=== PATIENT | female | born 1955 | race Caucasian/White ===

== ENCOUNTER 2017-04-30 18:26 | Inpatient (IN) | payer SELFPAY ==
[2017-04-30] MEDS ORDERED: Ibuprofen 600 MG TAB ONE (19:29)
[2017-04-30 19:59] LABS: #Basophils 0.1 thou/uL (0.0-0.2); #Lymphocytes 1.9 thou/uL (1.20-3.40); #Monocytes 0.7 thou/uL (0.11-0.59); %Basophils 0.5 % (0.0-1.0); %Eosinophils 0.1 % (0.0-10.0); %Lymphocytes 12.7 % (21.0-51.0); %Monocytes 4.5 % (0.0-10.0); Hematocrit 39.7 % (36.0-47.0); Mean Platelet Volume 6.5 fL (7.4-10.4); White Blood Cell (WBC) Count 14.6 thou/uL (4.8-10.8)
[2017-04-30 20:05] LABS: Prothrombin Time 12.1 SEC (12.0-14.7)
[2017-04-30 20:14] LABS: ALT (SGPT) 19 U/L (8-55); AST (SGOT) 21 U/L (5-34); Alkaline Phosphatase 53 U/L (40-150); Anion Gap 15 mmol/L (10-20); BUN (Urea Nitrogen) 17 mg/dL (9.8-20.1); Bilirubin, Total 0.3 mg/dL (0.2-1.2); Calc. Creatinine Clearance 0 mL/min (70-130); Calcium 10.3 mg/dL (7.8-10.44); Carbon Dioxide 23 mmol/L (23-31); Chloride 106 mmol/L (98-107); Estimated GFR-MDRD 85; Globulin 3.1 g/dL (2.4-3.5); Protein, Total 7.4 g/dL (6.0-8.3)
--- NOTE | 2017-04-30 21:09 | RAD ---
TWO VIEWS OF THE LEFT FORELEG: Indication: Fall with left thigh deformity. FINDINGS: There is a spiral fracture along the distal shaft of the left tibia with external rotation of the dis jody tibial shaft. There is an additional minimally displaced spiral fracture involving the distal fib ular shaft above the level of the ankle joint. A obliquely oriented comminuted fracture is seen invol ving the proximal fibular neck. This is minimally displaced. IMPRESSION: 1. Spiral fracture at the distal tibial shaft with external rotation of the distal fragment. 2. Segmental fracture of the fibula. POS: SLAVA
[2017-04-30] MEDS ORDERED: Dextrose 50% Abboject 50 ML SYRINGE SLOW IVP PRN (21:48)
[2017-04-30] MEDS ORDERED: Promethazine HCl 25 MG/ML VIAL IM PRN (21:48)
[2017-04-30] MEDS ORDERED: Ondansetron ODT 4 MG TAB PO PRN (21:48)
[2017-04-30] MEDS ORDERED: Acetaminophen 500 MG TAB PO PRN (21:48)
[2017-04-30] MEDS ORDERED: traMADol HCl 50 MG TAB PO PRN ×2 (21:48)
[2017-04-30] MEDS ORDERED: Ondansetron HCl/PF 4 MG/2 ML Vial IVP PRN (21:48)
[2017-04-30] MEDS ORDERED: Morphine 5 mg/5 ml in 0.9% NaCl/PF SYRINGE IVP PRN (21:48)
[2017-04-30] MEDS ORDERED: hydrALAZINE 20 MG/ML VIAL SLOW IVP PRN (21:48)
[2017-04-30] MEDS ORDERED: Dextrose 5% in Water 1,000 ML IV PRN (21:48)
[2017-04-30] MEDS ORDERED: Famotidine/PF 20 mg/2ml Vial SLOW IVP SCH (22:15)
[2017-04-30] MEDS: Sodium Chloride 0.9% 1,000 ML IV SCH (23:52)
[2017-04-30] MEDS: Ketorolac Tromethamine 30 MG/ML VIAL IVP SCH (23:56)
[2017-05-01 03:58] VITALS: BMI 22.6
[2017-05-01 04:34] LABS: #Eosinphils 0.1 thou/uL (0.0-0.7); #Lymphocytes 2.3 thou/uL (1.20-3.40); #Monocytes 0.7 thou/uL (0.11-0.59); #Neutrophils 4.6 thou/uL (1.40-6.50); %Basophils 0.6 % (0.0-1.0); %Eosinophils 0.8 % (0.0-10.0); %Lymphocytes 29.5 % (21.0-51.0); %Monocytes 8.6 % (0.0-10.0); Hematocrit 38.5 % (36.0-47.0); Red Blood Cell (RBC) Count 4.13 mill/uL (4.20-5.40); White Blood Cell (WBC) Count 7.7 thou/uL (4.8-10.8)
[2017-05-01 04:48] LABS: Anion Gap 12 mmol/L (10-20); BUN (Urea Nitrogen) 14 mg/dL (9.8-20.1); Calc. Creatinine Clearance 85 mL/min (70-130); Calcium 9.4 mg/dL (7.8-10.44); Carbon Dioxide 21 mmol/L (23-31); Chloride 108 mmol/L (98-107); Estimated GFR-MDRD Greater than 90; Magnesium 2.5 mg/dL (1.6-2.6); Phosphorus 3.4 mg/dL (2.3-4.7)
[2017-05-01] MEDS: Ketorolac Tromethamine 30 MG/ML VIAL IVP SCH ×4 (05:40→23:37)
--- NOTE | 2017-05-01 05:54 | HP ---
DATE OF ADMISSION: 04/30/2017 Chapincito Steele PA-C, dictating for Jacob Vital M.D. CONSULTING PHYSICIAN: Dr. Shields for Orthopedics. CHIEF COMPLAINT: Evaluation status post fall. HISTORY OF PRESENT ILLNESS: This is a 62-year-old female, complaining of pain in the left lower leg after slipping and falling down stairs. The patient denies any head or neck pain at the scene. The patient reported left lower leg pain. 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 She "heard the bone snap." She denies any LOC, chest pain, shortness of breath PAST MEDICAL HISTORY: She denies. PERTINENT SURGICAL HISTORY: and ganglion cyst removal on the right upper extremity. HOME MEDICATIONS: She denies any. PSYCHIATRIC HISTORY: She denies any psychiatric history. SOCIAL HISTORY: She does live at home with her . She denies any alcohol use. She denies any illicit drug use. She does use tobacco about half pack per day for the past 45 years. REVIEW OF SYSTEMS: All 10 systems reviewed, otherwise stated in HPI were negative. PHYSICAL EXAMINATION: VITAL SIGNS: Blood pressure 131/77, heart rate 96, temperature 98.7, respiratory rate 18. GENERAL: She is in no acute distress. HEENT: She is atraumatic, normocephalic. Pupils are 3 mm bilaterally equal, round, and reactive to light. NECK: No JVD, no masses. Trachea is midline. No cervical spine tenderness. PULMONARY: She is clear bilaterally to auscultation. CARDIOVASCULAR: S1, S2, regular rate and rhythm. ABDOMEN: Soft, nontender, nondistended. BACK: Unremarkable. EXTREMITIES: Upper extremities are unremarkable, positive pulses, equal strength and sensation. Left lower extremity swelling is in a notable splint. She has good pulses, no edema bilaterally. Range of motion is intact. RADIOLOGIC FINDINGS: Proximal fibular head fracture, spiral fracture of distal tibia and fibula fracture. LABORATORY FINDINGS: CBC showed WBCs of 14.6, hemoglobin 13.9, hematocrit 39.7 , platelet count 261. Coags: PT 12.1, INR 0.9. Chemistry: Sodium of 140, potassium 4.1, chloride 106, bicarbonate 23, BUN 17, creatinine 0.70, glucose 114. ASSESSMENT AND PLAN: A 62-year-old female status post fall with left lower leg fracture. 1. Left tibia and fibula fracture. 2. Acute traumatic pain. 3. Ground level fall. Plan will be orthopedic consultation. The patient will go to the operating room tomorrow. She will be n.p.o. after midnight. We will continue IV fluids. Optimize her pain control with p.o. and IV analgesics. Initiate gastritis and DVT prophylaxis when appropriate. The patient has been discussed with and the plan has been agreed upon by Dr. Vital at the time of dictation. RONAL
[2017-05-01] MEDS ORDERED: CEFAZOLIN/Water 2 GM/20 ML SYRINGE SLOW IVP SCH (07:30)
--- NOTE | 2017-05-01 08:04 | CON ---
DATE OF CONSULTATION: 05/01/2017 REASON FOR CONSULTATION: Left tibia fracture. HISTORY OF PRESENT ILLNESS: She was walking outside yesterday, slipped, twisted her leg, and suffere d a spiral fracture of her tibia. PAST MEDICAL HISTORY: Negative. SOCIAL HISTORY: She does smoke about a pack a day. She does not drink significantly. She has a goo d support system at home. REVIEW OF SYSTEMS: Negative for chest pain, nausea, vomiting. PHYSICAL EXAMINATION: GENERAL: Shows a pleasant woman in no distress. HEENT: She is normocephalic, atraumatic. LUNGS: Clear. EXTREMITIES: Left leg shows external rotation deformity, intact posterior tibial pulse, and intact s ensation. LABORATORY AND X-RAY FINDINGS: Radiographs show spiral fracture of the tibia with a segmental fibula fracture. PLAN: Intramedullary fixation of the tibia, possible ORIF of the fibula depending on the stability o f the ankle. She understands and would like to proceed with surgery. She understands the risk of in fection, stiffness, nerve or blood vessel damage, blood clots, transfusion, , and gives consent.
[2017-05-01] MEDS: Famotidine/PF 20 mg/2ml Vial SLOW IVP SCH ×2 (10:53→21:56)
[2017-05-01] MEDS: Sodium Chloride 0.9% 1,000 ML IV SCH ×2 (10:53→20:08)
[2017-05-01] MEDS ORDERED: Ketorolac Tromethamine 30 MG/ML VIAL ONE (12:54)
[2017-05-01] MEDS ORDERED: CEFAZOLIN/Water 2 GM/20 ML SYRINGE ONE (12:55)
[2017-05-01] MEDS ORDERED: HYDROcodone/Acetaminophen 5/325 mg Tablet PO PRN ×2 (14:18)
[2017-05-01] MEDS ORDERED: Fentanyl 100 MCG/2 ML VIAL ONE (14:26)
[2017-05-01] MEDS ORDERED: HYDROmorphone 0.5 MG/0.5 ML SYRINGE ONE ×2 (14:51)
[2017-05-01] MEDS ORDERED: Dexamethasone 20 MG/5 ML VIAL ONE (17:12)
[2017-05-01] MEDS ORDERED: Ondansetron HCl/PF 4 MG/2 ML Vial ONE (17:12)
[2017-05-01] MEDS ORDERED: Metoclopramide HCl 10 MG/2 ML VIAL ONE (17:12)
[2017-05-01] MEDS ORDERED: ePHEDrine/0.9% NaCl/PF SYRINGE 50 mg/10 ml ONE (17:12)
[2017-05-01] MEDS ORDERED: Propofol 200 MG/20 ML VIAL ONE (17:12)
[2017-05-01] MEDS ORDERED: Lidocaine 1% PF 5 ML VIAL ONE (17:12)
--- NOTE | 2017-05-01 18:30 | PRG ---
DATE OF SERVICE: 05/01/2017 ATTENDING PHYSICIAN: Dr. Ryan Trivedi. SUBJECTIVE: The patient was admitted one day ago after a ground level fall in which she twisted her leg and suffered a spiral fracture of her tibia. She was admitted to the hospital by Trauma Services with a consult to Orthopedic Service. She was seen this morning on the surgical floor, awaiting to go to the OR for fixation of her fracture. Pain is well controlled. She is currently n.p.o. No oth er complaints at this time. OBJECTIVE: VITAL SIGNS: Temperature 98.1, pulse 67, respirations 16, O2 sat 95%, blood pressure 141/69. GENERAL: Well-nourished, well-developed female, in no acute distress. HEENT: Normocephalic, atraumatic. PULMONARY: Bilateral breath sounds clear. No respiratory distress. CARDIOVASCULAR: S1, S2, regular rate and rhythm. ABDOMEN: Soft, nontender, nondistended. EXTREMITIES: Splint in place, left lower leg and foot. Cap refill brisk. Neurovascularly intact. NEUROLOGIC: Awake, alert, oriented x3. GCS is 15. ASSESSMENT: 1. Ground-level fall. 2. Fracture of left tibia. PLAN: 1. The patient to OR this afternoon with Dr. Shields for repair of fracture. 2. N.p.o. until after OR. 3. IV analgesia until after OR. 4. Anticipate starting physical and occupational therapy in a.m. The patient was seen and examined with Dr. Trivedi on morning rounds.
--- NOTE | 2017-05-01 18:45 | RAD ---
FIVE INTRAOPERATIVE RADIOGRAPHS LEFT TIBIA AND FIBULA: History: Fracture. FINDINGS: There is an intramedullary nail and screws across the fracture in the mid left tibia. Post reduction radiograph demonstrates fairly good anatomic alignment. IMPRESSION: Open reduction internal fixation of left tibial fracture. POS: SLAVA
[2017-05-01] MEDS: CEFAZOLIN/Water 2 GM/20 ML SYRINGE SLOW IVP SCH (21:57)
--- NOTE | 2017-05-01 22:29 | OP ---
DATE OF PROCEDURE: 05/01/2017 PREOPERATIVE DIAGNOSES: Left knee distal third diaphyseal tibial shaft fracture with segmental nondi splaced fibular shaft fracture. POSTOPERATIVE DIAGNOSES: Left knee distal third diaphyseal tibial shaft fracture with segmental nond isplaced fibular shaft fracture. OPERATIVE PROCEDURE: Closed reduction with intramedullary tibial nail fixation of left tibial shaft fracture. SURGEON: Beltran Shields M.D. CLIENT PARTNER: Bo Porter PA-C. ANESTHESIA: General via LMA. TOURNIQUET: Not used. ESTIMATED BLOOD LOSS: Less than 50. COMPONENTS USED: Synthes 8 x 300 mm titanium cannulated tibial nail with two 4.0 interlocking screws . FINDINGS: Tibial shaft fracture, distal third metadiaphyseal junction. DRAINS: None. SPECIMENS: None. COMPLICATIONS: None. COUNTS: Correct. INDICATIONS FOR SURGERY: Tamara is a 62-year-old white female who had a fall from standing high yes terday resulting in a left tibial shaft fracture with segmental nondisplaced fibular shaft fracture. Our service was consulted for definitive orthopedic management of this problem. PROCEDURE IN DETAIL: After informed consent was obtained in the preoperative holding area, the patie nt received preoperative antibiotics, was taken to the operative suite where she was positioned appro priately. The left lower extremity was then prepped and draped in the usual sterile fashion. Prior to incision, timeout was called and all members of the surgical team agreed on site, surgeon, and pat ient. After this, an incision was made directly over the patellar tendon. Fluoroscopy was used at t he beginning of the case to find the center-center. Once this was accomplished, the patellar tendon was then encountered and incised sharply in the middle tibial joint line. A guidewire was then placed, extraarticular and outside the fat pad behind the patellar tendon. This was over reamed wit h the entry reamer. We then placed a long guide justine. We were able to capture the distal shaft and c onfirmed its placement in 2 planes. We then used the intramedullary reamer up to a size 9. We place d an 8 mm tibial nail. Nail was fairly malleted squarely into place. Fluoroscopy was used to confir m rotation and reduction in 2 planes. Happy with near anatomic reduction, we then placed a 4.0 stati c screw proximally and a distal oblique interlocking screw to control rotation on both ends. Fluoros copy was then confirmed anatomic reduction and good screw placement. The outrigger was then removed. The incisions were copiously irrigated with normal saline. We did not place an end cap. Primary c losure was accomplished with interrupted 2-0 Vicryl in the patellar tendon. The paratenon was then r un with 2-0 Vicryl, subcutaneous layer was also closed with 2-0 Vicryl, and stainless steel raghav w ere used to reapproximate the skin at the patellar tendon proximal and distal interlocking screws. S terile dressing was applied. Posterior splint was placed. The procedure was terminated without any complications. The LMA was removed. The patient was taken to the recovery room in stable condition.
[2017-05-02] MEDS: Ketorolac Tromethamine 30 MG/ML VIAL IVP SCH ×2 (05:38→12:42)
[2017-05-02] MEDS: CEFAZOLIN/Water 2 GM/20 ML SYRINGE SLOW IVP SCH ×2 (05:39→12:42)
[2017-05-02] MEDS: Sodium Chloride 0.9% 1,000 ML IV SCH (05:48)
[2017-05-02] MEDS: Famotidine/PF 20 mg/2ml Vial SLOW IVP SCH (09:42)
--- NOTE | 2017-05-02 11:54 | PRG-2 ---
DATE OF SERVICE: 05/02/2017 ATTENDING PHYSICIAN: Ryan Trivedi D.O. SUBJECTIVE: Tamara Minor is a 62-year-old woman who is postop day #1 for closed reduction with intr amedullary tibial nail fixation of a left tibial shaft fracture after a ground level fall. The patie nt is doing well this morning. She states that her pain is well controlled. She has no complaints. OBJECTIVE: VITAL SIGNS: Temperature 98.3, pulse 63, respiratory 16, O2 sat 98% on 1.5 liters and blood pressure is 126/60. GENERAL: Well-nourished, well-developed woman in no acute distress. HEENT: Normocephalic, atraumatic. LUNGS: Clear to auscultation bilaterally. No respiratory distress. CARDIOVASCULAR: Regular rate and rhythm with no murmurs. ABDOMEN: Soft, nontender, nondistended. NEUROLOGIC: Awake, alert and oriented x3. ASSESSMENT: 1. Ground level fall. 2. Fractured left tibia. PLAN: Routine postoperative care. We will continue p.o. pain management and we will advance diet to day as tolerated. We will also get case management involved for rehab screening. We will also eugenia nue mobilization with physical and occupational therapy. The patient was seen and examined by attending trauma surgeon, Dr. Ryan Trivedi in morning rounds.
[2017-05-02 13:03] VITALS: BP 146/78; TEMP 97.8
--- NOTE | 2017-05-03 13:32 | DIS ---
DATE OF ADMISSION: 04/30/2017 DATE OF DISCHARGE: 05/03/2017 ADMISSION DIAGNOSES: 1. Status post ground level fall. 2. Left tibia and fibula fracture. CONSULTATIONS: Orthopedics, Dr. Shields. PROCEDURE: Intramedullary nailing of left tibia fracture. SUMMARY: The patient is a 62-year-old woman who reportedly slipped down a stair at home. She had pain in her left lower extremity, was brought to the emergency department, evaluated, examined, and f ound to have the above injuries. The patient will be taken to the operating room to undergo her proc edures. She tolerated this procedure well. The following day, she would be working with physical an d occupational therapy and at time of discharge, she was ambulating with a walker, was tolerating a d iet, and her pain was controlled. She will follow up with Orthopedics in 10-14 days or sooner as leland merrill
== END 2017-05-02 16:52 | disposition home or self-care (01) | DRG 494 ==
LOC: SCSER 18:26 → SURG A 19:39
PROVIDERS: ADMIT Surgery; ATTEND Surgery
PROC: 0QSH06Z Reposition Left Tibia with Intramedullary Internal Fixation Device, Open Approach (ICD-10-PCS; principal; 2017-05-01)
DX: S89.102A Unspecified physeal fracture of lower end of left tibia, initial encounter for closed fracture (principal); S82.46 Segmental fracture of shaft of fibula; W10.9XXA Fall (on) (from) unspecified stairs and steps, initial encounter
CPT/HCPCS: 36415; 76001; 80048; 80053; 83735; 84100; 85025; 85610; 86850; 86900; 86901; C1713; C1769; G8978-GP-CK; G8979-GP-CK; G8980-GP-CK; J0131; J1100; J1170; J1885; J2001; J2405; J2704; J2765; J3010; S0028

== ENCOUNTER 2019-09-15 18:50 | Inpatient (IN) | payer SELFPAY ==
--- NOTE | 2019-09-15 21:04 | RAD ---
LEFT KNEE FOUR VIEWS: History: Injury Comparison: None FINDINGS: There is a spiral type fracture of the distal femoral metadiaphysis which does not extend to the knee joint, 3.5 cm from the femoral articular surface. There appears to be a lateral tibial plateau impaction fracture. IMPRESSION: 1. Extraarticular spiral type fracture distal femoral metadiaphysis. 2. Impaction type fracture lateral tibial plateau. POS: HOME
[2019-09-15 21:05] LABS: #Basophils 0.1 thou/uL (0.0-0.2); #Lymphocytes 1.3 thou/uL (1.20-3.40); #Monocytes 0.5 thou/uL (0.11-0.59); #Neutrophils 11.7 thou/uL (1.40-6.50); %Basophils 0.7 % (0.0-1.0); %Eosinophils 0.1 % (0.0-10.0); %Lymphocytes 9.4 % (21.0-51.0); %Monocytes 3.7 % (0.0-10.0); %Neutrophils 86.2 % (42.0-75.0); Hemoglobin 13.9 g/dL (12.0-16.0); Mean Corpuscular Hemoglobin 30.4 pg (27.0-31.0); Mean Corpuscular Volume 89.4 fL (78.0-98.0); Mean Platelet Volume 6.9 fL (7.4-10.4); Platelet Count 265 thou/uL (130-400); RBC Distribution Width 11.4 % (11.5-14.5); Red Blood Cell (RBC) Count 4.58 mill/uL (4.20-5.40); White Blood Cell (WBC) Count 13.5 thou/uL (4.8-10.8)
--- NOTE | 2019-09-15 21:06 | RAD ---
LEFT FEMUR TWO VIEW: History: Fracture Comparison: Knee pain FINDINGS: The femoral head and neck appear to be intact. Minor lucency through the ischemia likely artifactual. Distal femur fracture is of similar appearance. IMPRESSION: Intact proximal femur. Spiral type distal femur fracture. Lateral tibial plateau fracture. POS: HOME
--- NOTE | 2019-09-15 21:07 | RAD ---
CHEST ONE VIEW: History: Pre-operative. Comparison: None. FINDINGS: The left hemidiaphragm is elevated, likely chronic in nature. No consolidation, pneumothorax or effus ion. IMPRESSION: No acute intrathoracic abnormality. POS: HOME
[2019-09-15 21:11] LABS: INR-International Normal Ratio 0.9; PTT 27.2 SEC (22.9-36.1); Prothrombin Time 12.5 SEC (12.0-14.7)
[2019-09-15 21:28] LABS: ALT (SGPT) 22 U/L (8-55); AST (SGOT) 21 U/L (5-34); Albumin 4.6 g/dL (3.4-4.8); Alkaline Phosphatase 68 U/L (40-110); Anion Gap 14 mmol/L (10-20); BUN (Urea Nitrogen) 16 mg/dL (9.8-20.1); Bilirubin, Total 0.3 mg/dL (0.2-1.2); CK (CPK) 133 U/L (29-168); Calc. Creatinine Clearance 0 mL/min (70-130); Calcium 10.1 mg/dL (7.8-10.44); Carbon Dioxide 24 mmol/L (23-31); Chloride 105 mmol/L (98-107); Estimated GFR-MDRD 80; Globulin 3.3 g/dL (2.4-3.5); Glucose 136 mg/dL (80-115); Protein, Total 7.9 g/dL (6.0-8.3); Sodium 139 mmol/L (136-145)
[2019-09-15] MEDS ORDERED: hydrALAZINE 20 MG/ML VIAL SLOW IVP PRN (21:59)
[2019-09-15] MEDS ORDERED: Dextrose 5% in Water 1,000 ML IV PRN (21:59)
[2019-09-15] MEDS ORDERED: Morphine 4 MG/ML VIAL SLOW IVP PRN (21:59)
[2019-09-15] MEDS ORDERED: Dextrose 50% Abboject 50 ML SYRINGE SLOW IVP PRN (21:59)
[2019-09-15] MEDS ORDERED: HumaLOG 300 UNITS/3 ML VIAL SC PRN (21:59)
[2019-09-15] MEDS ORDERED: Ondansetron PF 4 MG/2 ML Vial IVP PRN (21:59)
[2019-09-15] MEDS ORDERED: Morphine 2 MG/ML SYRINGE SLOW IVP PRN (21:59)
[2019-09-15] MEDS ORDERED: traMADol HCl 50 MG TAB PO PRN ×2 (22:02)
[2019-09-15] MEDS ORDERED: Ketorolac Tromethamine 30 MG/ML VIAL IVP PRN (22:05)
[2019-09-15] MEDS ORDERED: Famotidine 20 MG TAB PO SCH (22:15)
[2019-09-15] MEDS: Sodium Chloride 0.9% 1,000 ML IV SCH (23:20)
[2019-09-15] MEDS: Acetaminophen 325 MG TAB PO SCH (23:21)
[2019-09-16 00:10] VITALS: BMI 25.2
--- NOTE | 2019-09-16 00:55 | HP ---
REQUESTING PHYSICIAN: Bennett Valdivia DO. CONSULTING PHYSICIAN: Dr. Landeros. HISTORY OF PRESENT ILLNESS: Ms. Minor is a 64-year-old female who presented to the ED for evaluation of fall. 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 After the fall, the patient did not lose consciousness. Did not hit her head or any part of her body. However, she complained of left lower extremity pain and unable to bear weight. Upon arrival in the ED, the patient is alert and awake. Vital signs stable. Complains of left leg pain and there is obvious deformity of left thigh. REVIEW OF SYSTEMS: Noncontributory except per HPI. PAST MEDICAL HISTORY: Denied. PAST SURGICAL HISTORY: and left leg surgery 2 years ago due to tibia, left leg fracture. SOCIAL HISTORY: The patient lives at home. Denies drug use. Denies alcohol use. Denies smoking history. The patient is a former tobacco user in which she quit two years ago. ALLERGIES: NO KNOW ALLERGIES. CURRENT MEDICATIONS: None. PHYSICAL EXAMINATION: GENERAL: The patient lying down in bed comfortable with no acute respiratory distress, in mild distress of pain from the left lower extremity. VITAL SIGNS: Heart rate is 65, respiratory rate 16, temperature 98.2, blood pressure 141/68, O2 sat 95% on room air. HEENT: Atraumatic. No bruising. Nontender to palpation. Pupil 3 mm, equal bilaterally, reactive to light. NECK: Trachea midline. Nontender to palpation. CHEST: Atraumatic. No bruising. Nontender to palpation. LUNGS: Clear bilaterally. HEART: Regular rate and rhythm. ABDOMEN: Soft, nondistended. EXTREMITIES: Neurovascularly intact x4. Left thigh and knee, extreme pain to palpation. There is obvious deformity downstream, neurovascularly intact. Bilateral upper extremities and right lower extremity neurovascularly intact x3. Normal range of motion x3. NEUROLOGIC: No focal neurology deficits. LABORATORY DATA: Initial workup shows white count 13.5, hemoglobin is 13.9, platelet count 265. Sodium 139, potassium 4.0, creatinine 0.73, glucose 136. Liver function is normal. Imaging show chest x-ray, no acute intrathoracic abnormality. Femur x-ray intact. Spiral tap distal femur fracture from left femur two-view x-ray. ASSESSMENT: 1. Status post mechanical fall. 2. Left distal femur fracture. PLAN: The patient will be admitted to telemetry for pain control. Initiate gastritis prophylaxis and initiate nonpharmacological DVT prophylaxis. Dr. Landeros will see the patient and discuss surgical plan. The patient will be n.p.o. at midnight. Dr. Vital is notified before this dictation. Job ID: [id number]
[2019-09-16] MEDS: Acetaminophen 325 MG TAB PO SCH ×3 (06:20→17:33)
[2019-09-16] MEDS ORDERED: CEFAZOLIN 2 GM in Premix Bag 1 BAG IVPB SCH ×2 (07:30→19:00)
--- NOTE | 2019-09-16 08:18 | CON ---
DATE OF CONSULTATION: 09/16/2019 REQUESTING PHYSICIAN: Ryan Trivedi DO BRIEF HISTORY OF PRESENT ILLNESS: Ms. Minor is a 64-year-old lady who presented to the emergency department at [facility] in [place] on the evening of September 15, 2019. She earlier in the evening, sustained a fall with twisting injury to her left lower extremity. She reports that "the goat went one way and I went the other sustaining fall and breaking her distal femur." There was no loss of consciousness and upon arrival at [facility], her sole complaint was that of left distal thigh pain. PAST MEDICAL HISTORY: Otherwise healthy. PAST SURGICAL HISTORY: as well as intramedullary nail placement of her left tibia in 2017. MEDICATIONS: None. ALLERGIES: NONE KNOWN. SOCIAL HISTORY: The patient lives in a private residence. Denies drug or alcohol use. Also denies current tobacco use. She is a former smoker. She reports that she quit 2 years ago. FAMILY HISTORY: Noncontributory for this fracture. REVIEW OF SYSTEMS: No recent fevers, chills, or sweats. No shortness of breath, cough, or chest pain. Denies numbness or tingling in the lower extremity. PHYSICAL EXAMINATION: VITAL SIGNS: Temperature of 98.2, heart rate of 84, respiratory rate of 16, and blood pressure 145/82. HEENT: Atraumatic and normocephalic. HEART: Shows a regular rate and rhythm without murmur. LUNGS: Clear to auscultation bilaterally with good breath sounds. Chest wall is nontender. ABDOMEN: Flat, soft, and nontender. PELVIS: Stable to compression. EXTREMITIES: Remarkable for left lower extremity that is held with the knee in a flexed position of approximately 45 degrees with pillows bolstered under the knee. Her calf and thigh compartments are soft and nontender. She has no pain with passive stretch of the ankle or toes. She has intact subjective sensation in the foot. There are no open wounds. She has modest swelling at the distal thigh. LABORATORY DATA: She was found to have a white count of 13.5, a hematocrit of 41, and 265,000 platelets. IMAGING STUDIES: X-ray, two view x-ray of the left femur and four view x-ray of left knee remarkable for a supracondylar distal femur fracture that does spiral into the distal femoral diaphysis. I do not appreciate an obvious intercondylar extension of this fracture. ASSESSMENT: The patient with left supracondylar distal femur fracture with displacement. PLAN: At this time, the patient is scheduled for open reduction and internal fixation of this left distal femur. Today, I discussed with the patient risks and benefits of the procedure. Risks include, but are not limited to bleeding, infection, nerve injury, DVT, PE, knee stiffness, hardware failure, loss of limb or life. The patient appears to understand and does wish to proceed. Written consent will be obtained prior to surgery. Job ID: [id number]
[2019-09-16] MEDS: Polyethylene Glycol 3350 17 GM Packet PO SCH (08:22)
[2019-09-16] MEDS: Gabapentin 100 MG CAP PO SCH ×2 (08:22→22:15)
[2019-09-16] MEDS: Senokot S 8.6-50 MG TAB PO SCH ×2 (08:22→22:15)
[2019-09-16] MEDS: Famotidine 20 MG TAB PO SCH ×2 (08:22→22:15)
[2019-09-16] MEDS: Sodium Chloride 0.9% 1,000 ML IV SCH (08:32)
[2019-09-16] MEDS ORDERED: Glycopyrrolate 0.2 MG/ML 5 ML SYRINGE ONE (10:53)
[2019-09-16] MEDS ORDERED: Rocuronium Bromide 10 MG/ML (10ML VIAL) ONE (10:53)
[2019-09-16] MEDS ORDERED: PHENYLEPHRINE-NS 100 MCG/ML 10 ML SYRINGE ONE (10:53)
[2019-09-16] MEDS ORDERED: Ondansetron PF 4 MG/2 ML Vial ONE (10:53)
[2019-09-16] MEDS ORDERED: EPHEDRINE 25 MG/5 ML SYRINGE ONE (10:53)
[2019-09-16] MEDS ORDERED: PROPOFOL 200 MG/20 ML VIAL ONE (10:53)
[2019-09-16] MEDS ORDERED: Midazolam HCl 2 mg/2 ml Vial ONE (12:09)
--- NOTE | 2019-09-16 12:13 | PRG ---
DATE OF SERVICE: 09/16/2019 SUBJECTIVE: The patient is currently on the surgical floor. She is status post ground level fall, which she sustained a left distal femur fracture. She has been n.p.o. since midnight. Her pain has been controlled. She is awaiting surgery planned for today at noon. OBJECTIVE: VITAL SIGNS: Temperature is 98.2, heart rate 84, blood pressure 145/82, respirations 16, and oxygen saturation 92% on room air. GENERAL: The patient is resting comfortably in bed. She is awake, alert, conversant, and appropriate. Prai Coma Scale is 15. HEENT: Unremarkable. LUNGS: Clear to auscultation with good inspiratory and expiratory effort. HEART: Regular rate and rhythm. ABDOMEN: Soft, flat, and nontender with active bowel sounds. EXTREMITIES: Neurovascularly intact x4. LABORATORY DATA: There are no labs or radiographs reviewed this morning. ASSESSMENT: 1. Status post ground level fall. 2. Left distal femur fracture. PLAN: Plan will be to continue n.p.o. status for surgery. Postoperatively, we will begin physical and occupational therapy, transition her pain medications to the oral route and discuss placement. The patient's desire is to return home. The patient was evaluated this morning with Dr. Trivedi during rounds. Job ID: [id number]
[2019-09-16] MEDS ORDERED: Fentanyl 100 MCG/2 ML VIAL ONE ×2 (12:20→14:54)
[2019-09-16] MEDS ORDERED: Zolpidem Tartrate 5 MG TAB PO PRN (12:45)
[2019-09-16] MEDS ORDERED: Promethazine HCl 25 MG/ML VIAL IM PRN (12:45)
--- NOTE | 2019-09-16 14:28 | RAD ---
LEFT FEMUR 2 VIEWS: Date: 09/16/2019 HISTORY: Left femur fracture. Open reduction and internal fixation. FINDINGS/IMPRESSION: There has been interval reduction and internal fixation of the distal femoral shaft fracture noted on 09/15/2019 with plate and screws. POS: TATIANA
[2019-09-16] MEDS ORDERED: traMADol HCl 50 MG TAB PO PRN (14:30)
[2019-09-16] MEDS ORDERED: Ropivacaine HCl/PF 250 ML in Premix Bag 1 BAG NERVE BLCK SCH (14:30)
[2019-09-16] MEDS ORDERED: Fentanyl 100 MCG/2 ML VIAL IV PRN (14:31)
[2019-09-16] MEDS: Ketorolac Tromethamine 30 MG/ML VIAL IVP SCH (17:33)
--- NOTE | 2019-09-16 21:05 | OP ---
DATE OF PROCEDURE: 09/16/2019 PREOPERATIVE DIAGNOSIS: Left distal femur fracture. POSTOPERATIVE DIAGNOSIS: Left distal femur fracture. PROCEDURE PERFORMED: Open reduction and internal fixation of left distal femur. ANESTHESIA: General. SKATING CARHOP: Bo Porter PA-C ESTIMATED BLOOD LOSS: 100 mL. IMPLANTS: Synthes system was used with a 4.5 mm variable-angle LCP curved condylar plate, 14 holes. COMPLICATIONS: None. DRAINS: None. SPECIMEN: None. OUTCOME: Near-anatomic alignment. INDICATIONS FOR PROCEDURE: The patient is a 64-year-old lady, status post fall sustaining a mildly displaced left distal femur fracture. After discussion with the patient including risks and benefits, we decided to proceed with open reduction and internal fixation. Informed consent has been obtained. I believe all questions have been answered. DESCRIPTION OF PROCEDURE: The patient was brought to the operating room, and a time-out was performed followed by induction of general anesthesia. Next, she was positioned supine on the OR table, and a sterile prep and drape were performed of the left lower extremity. Next, a vertical incision was made over the lateral aspect of the distal femur. This starting at the joint line extending proximally for a distance of approximately 4 inches. After skin was sharply incised, dissection was carried down to the IT band. This was incised in line with the skin incision and reflected anteriorly and posteriorly gaining access to the fascia of the vastus lateralis. The vastus lateralis was reflected anteriorly revealing the lateral aspect of the distal femur and the lateral epicondyle. Gentle subperiosteal dissection was then performed distally revealing the fracture laterally. The fracture was reduced under direct visualization as well as C-arm guidance, and then 2 K-wires were passed obliquely across the fracture to get provisional stabilization. Next, AP and lateral C-arm imaging was used to confirm appropriate reduction. Next, a 14-hole curved condylar plate was passed through this lateral distal incision up along the lateral cortex of the femur proximally. Once appropriately positioned, it was checked on both AP and lateral C-arm imaging. A wire was passed through the central hole distally across the condyles and into the medial epicondyle for a provisional stabilization of the plate on the femur. Next, through a small stab wound, the most proximal hole of the plate was utilized to hold a second K-wire capturing the plate centrally on the femur proximally. AP and lateral C-arm images were again checked, and then locking screws were applied in standard fashion in the distal segment. Multiple stab wounds were then created proximally, and locking screws were used to affix the longitudinal limb of the plate to the shaft proximally. At the completion of this, K-wires were then removed, and AP and lateral C-arm imaging was performed that showed near-anatomic alignment of the fracture. The outrigger was then removed from the plate. The wound was irrigated with bulb syringe and then closed in layers with #1 Vicryl for the IT band followed by 0 Vicryl, 2-0 Vicryl, and then arghav for the skin. [place] were also used for the small stab wounds more proximally. Xeroform gauze, Webril, and bulky soft dressing was applied to the leg, and then the leg was placed in a hinged knee brace that was locked at 20 degrees of flexion. There were no complications. The patient tolerated the procedure well. Job ID: [id number]
[2019-09-16] MEDS: CEFAZOLIN 2 GM in Premix Bag 1 BAG IVPB SCH (21:59)
[2019-09-17] MEDS: Acetaminophen 325 MG TAB PO SCH ×5 (00:13→23:09)
[2019-09-17] MEDS: Ketorolac Tromethamine 30 MG/ML VIAL IVP SCH ×5 (00:13→23:09)
--- NOTE | 2019-09-17 00:31 | PRG ---
DATE OF SERVICE: 09/16/2019 SUBJECTIVE: Ms. Minor was seen on round this evening. The patient is status post mechanical fall with left distal femur fracture. The patient underwent ORIF of left distal femur fracture earlier today. The patient tolerated with procedure well. Postoperatively, the patient is doing good. Pain is well controlled. She tolerated with her regular diet. Her urine is adequate, and her vital signs have been stable. The patient denies nausea or vomiting. OBJECTIVE: GENERAL: Currently, the patient is lying in bed, comfortable, with no acute respiratory distress. VITAL SIGNS: Stable. LUNGS: Clear bilaterally. HEART: Regular rate and rhythm. ABDOMEN: Soft and nondistended. EXTREMITIES: Neurovascularly intact x4. NEUROLOGIC: No focal neurology deficits. Postoperative dressing is clean, dry, and intact. ASSESSMENT: 1. Status post mechanical fall. 2. Left distal femur fracture. PLAN: The patient will continue supportive care. Continue pain control. Continue DVT prophylaxis. The patient will be working with Physical Therapy and Occupational Therapy tomorrow. Anticipate placement in rehabilitation facility. Job ID: [id number]
[2019-09-17] MEDS: CEFAZOLIN 2 GM in Premix Bag 1 BAG IVPB SCH ×2 (05:40→12:04)
[2019-09-17 05:45] LABS: #Eosinphils 0.1 thou/uL (0.0-0.7); #Monocytes 0.8 thou/uL (0.11-0.59); #Neutrophils 5.1 thou/uL (1.40-6.50); %Basophils 0.1 % (0.0-1.0); %Eosinophils 0.7 % (0.0-10.0); %Lymphocytes 25.3 % (21.0-51.0); %Monocytes 9.5 % (0.0-10.0); %Neutrophils 64.3 % (42.0-75.0); Hemoglobin 10.4 g/dL (12.0-16.0); Mean Corpuscular HGB CONC 33.3 g/dL (32.0-36.0); Mean Corpuscular Hemoglobin 30.2 pg (27.0-31.0); Mean Corpuscular Volume 90.5 fL (78.0-98.0); Mean Platelet Volume 7.2 fL (7.4-10.4); Platelet Count 216 thou/uL (130-400); RBC Distribution Width 11.6 % (11.5-14.5); Red Blood Cell (RBC) Count 3.45 mill/uL (4.20-5.40); White Blood Cell (WBC) Count 7.9 thou/uL (4.8-10.8)
[2019-09-17] MEDS ORDERED: Morphine 2 MG/ML SYRINGE SLOW IVP PRN (06:00)
[2019-09-17] MEDS: Gabapentin 100 MG CAP PO SCH ×2 (08:30→20:57)
[2019-09-17] MEDS: Famotidine 20 MG TAB PO SCH (08:30)
[2019-09-17] MEDS: Polyethylene Glycol 3350 17 GM Packet PO SCH (08:31)
[2019-09-17] MEDS: Senokot S 8.6-50 MG TAB PO SCH ×2 (08:31→20:57)
[2019-09-17 08:42] LABS: Anion Gap 13 mmol/L (10-20); BUN (Urea Nitrogen) 11 mg/dL (9.8-20.1); Calc. Creatinine Clearance 76 mL/min (70-130); Calcium 9.5 mg/dL (7.8-10.44); Carbon Dioxide 23 mmol/L (23-31); Chloride 107 mmol/L (98-107); Estimated GFR-MDRD 86; Glucose 91 mg/dL (80-115); Phosphorus 2.5 mg/dL (2.3-4.7); Potassium 4.2 mmol/L (3.5-5.1); Sodium 139 mmol/L (136-145)
[2019-09-17] MEDS ORDERED: traMADol HCl 50 MG TAB PO PRN ×2 (10:05)
--- NOTE | 2019-09-17 13:13 | PRG ---
DATE OF SERVICE: 09/17/2019 SUBJECTIVE: The patient was seen this morning during rounds. She was sitting up in bed with no signs of acute distress. She is postoperative day 0 after ORIF of the left distal femur fracture. The patient has a nerve block to the left lower extremity. Reports she has no pain. Tolerating her diet. She has not worked with Physical and Occupational Therapy yet. OBJECTIVE: VITAL SIGNS: Temperature 98.2, pulse 82, respirations 16, oxygen saturation 95% on room air, and blood pressure 137/79. GENERAL: Well-appearing elderly female, sitting up in bed with no signs of acute distress. PULMONARY: Equal chest rise and fall. Clear breath sounds bilaterally. No signs of acute respiratory distress. CARDIAC: Regular rate and rhythm. No murmurs, gallops, or rubs. GI: Abdomen is soft, nontender, and nondistended. EXTREMITIES: 2+ pulses in all extremities. Gross motor and sensation intact. No significant swelling noted. NEURO: GCS is 15. LABORATORY FINDINGS: White count 7.9, hemoglobin 10.9, hematocrit 31.2, and platelets 216. Sodium 139, potassium 4.2, chloride 107, bicarb 23, BUN 11, creatinine 0.69, glucose 91, phosphorus 2.5, and magnesium 2.0. DIAGNOSTIC FINDINGS: There are no new diagnostic findings to report. ASSESSMENT: 1. Status post mechanical fall. 2. Left distal femur fracture, status post repair. 3. Acute traumatic pain, resolving. PLAN: Continue current diet and pain regimen. Can start work with Physical and Occupational Therapy today for DVT prophylaxis today with Lovenox. The patient will be evaluated by PT today and may need placement in acute rehab facility versus discharge home. It does appear the patient is uninsured, so she may only be able to go home. Job ID: [id number]
[2019-09-17] MEDS: Enoxaparin Sodium 30 MG/0.3 ML SYRINGE SC SCH (20:57)
[2019-09-17] MEDS ORDERED: Enoxaparin Sodium 40 MG/0.4 ML SYRINGE SC SCH ×2 (21:00)
--- NOTE | 2019-09-17 22:04 | PRG ---
DATE OF SERVICE: 09/17/2019 SUBJECTIVE: The patient was seen during evening rounds. The patient is awake and alert, in no distress. The patient is postop day #1 status post open reduction and internal fixation of left distal femur fracture. The patient denies any pain at this time. The patient continues to tolerate her diet. She is able to get 1,000 - 1500ml on her IS. OBJECTIVE: VITAL SIGNS: Blood pressure 169/82, temperature 97.7, pulse 99, respirations 16, and SpO2 of 91% on room air. GENERAL: Elderly female in no acute distress. PULMONARY: Respirations are even and nonlabored. No respiratory distress. EXTREMITIES: Left lower extremity in a brace. No focal deficits. ASSESSMENT: 1. Status post mechanical fall. 2. Left distal femur fracture postop day 1 open reduction and internal fixation. 3. Acute traumatic pain, resolving. PLAN: Continue current diet and pain regimen. Continue physical and occupational therapy. Continue VTE prophylaxis. Encourage incentive spirometer use and increase goal to 2,000ml. Monitor the patient's blood pressure as she has been mildly hypertensive, consider starting an oral agent if she remains hypertensive. There are no home medications that need to be restarted. Job ID: [id number] MTDD
[2019-09-18 03:04] VITALS: TEMP 98.2
[2019-09-18 05:20] LABS: #Lymphocytes 2.1 thou/uL (1.20-3.40); #Monocytes 0.7 thou/uL (0.11-0.59); #Neutrophils 5.7 thou/uL (1.40-6.50); %Basophils 0.5 % (0.0-1.0); %Eosinophils 0.3 % (0.0-10.0); %Lymphocytes 24.2 % (21.0-51.0); %Monocytes 8.1 % (0.0-10.0); %Neutrophils 66.8 % (42.0-75.0); Mean Corpuscular HGB CONC 33.9 g/dL (32.0-36.0); Mean Corpuscular Hemoglobin 30.9 pg (27.0-31.0); Mean Platelet Volume 6.9 fL (7.4-10.4); Platelet Count 224 thou/uL (130-400); RBC Distribution Width 11.5 % (11.5-14.5); Red Blood Cell (RBC) Count 3.56 mill/uL (4.20-5.40); White Blood Cell (WBC) Count 8.5 thou/uL (4.8-10.8)
[2019-09-18] MEDS ORDERED: Lisinopril 10 MG TAB PO SCH (09:00)
[2019-09-18] MEDS: Senokot S 8.6-50 MG TAB PO SCH (09:38)
[2019-09-18] MEDS: Gabapentin 100 MG CAP PO SCH (09:38)
[2019-09-18] MEDS: Polyethylene Glycol 3350 17 GM Packet PO SCH (09:38)
[2019-09-18] MEDS: Enoxaparin Sodium 30 MG/0.3 ML SYRINGE SC SCH (09:39)
[2019-09-18 11:43] VITALS: BP 132/67
[2019-09-18] MEDS: Acetaminophen 325 MG TAB PO SCH (12:50)
[2019-09-18] MEDS: Ketorolac Tromethamine 30 MG/ML VIAL IVP SCH (12:51)
--- NOTE | 2019-09-18 15:02 | DIS ---
DATE OF ADMISSION: 09/15/2019 DATE OF DISCHARGE: 09/18/2019 ADMISSION DIAGNOSES: Mechanical fall from standing and left distal femur fracture. DISCHARGE DIAGNOSES: Mechanical fall from standing, left distal femur fracture , and essential hypertension. CONSULTING PHYSICIAN: Dr. Loco of Orthopedic Surgery. PROCEDURES: The patient went to the OR on September 16, 2019 and had an ORIF of the left distal femur by Dr. Loco. HOSPITAL COURSE: The patient is a 64-year-old female, who presented to the emergency department after mechanical fall. She was found to have a left distal femur fracture and was admitted to the Trauma Service. Dr. Loco took her to the OR the next day for fixation of the left distal femur fracture. Postoperatively , she worked with Physical and Occupational Therapy and her pain is well controlled at the time of discharge. It was found that the patient was hypertensive with systolics in the 160s to 180s. She does not have a PCP and is not taking any medications. Subsequently, she was started on lisinopril and blood pressure control was achieved. She was advised to follow up with primary care physician for further monitoring and management of her hypertension, she agreed. She was ultimately discharged home with home physical therapy as she was able to get around safely with a walker and she is uninsured. She was not accepted at any other facilities. DISCHARGE DISPOSITION: Home. DISCHARGE CONDITION: Satisfactory. PHYSICAL EXAMINATION: VITAL SIGNS: Temperature 98.2, pulse 97, respirations 16, oxygen saturation 93 % on room air, and blood pressure 132/67. GENERAL: Well-appearing elderly female, sitting up in bed with no signs of acute distress. PULMONARY: Equal chest rise and fall. Clear breath sounds bilaterally. No signs of acute respiratory distress. CARDIAC: Regular rate and rhythm. No murmurs, gallops, or rubs. GASTROINTESTINAL: Abdomen is soft, nontender, nondistended. EXTREMITIES: 2+ pulses in all extremities. Gross motor and sensation are intact. Left lower extremity with knee immobilizer in place. NEUROLOGIC: GCS is 15. DISCHARGE INSTRUCTIONS: The patient was discharged home with home health. She is nonweightbearing on the left lower extremity, low-sodium diet. She will have home physical therapy, incentive spirometry, walker, and a wheelchair. DISCHARGE MEDICATIONS: Include, 1. Lovenox for a total of 30 days. 2. Gabapentin. 3. Tylenol. 4. Lisinopril for a total of 30 days. 5. MiraLAX. 6. Tramadol. FOLLOWUP APPOINTMENTS: The patient is to follow up with her primary care physician. She reports she will go to [facility] in [place]. No followup needed with Orthopedic Surgery. She will also follow up with Dr. Loco for her left distal femur fracture. This is a summary of the patient's hospitalization. For full details, please see her medical record in its entirety. Job ID: [id number] MTDD
--- NOTE | 2019-09-20 13:57 | EKG ---
Test Reason : Blood Pressure : / mmHG Vent. Rate : 082 BPM Atrial Rate : 082 BPM P-R Int : 150 ms QRS Dur : 072 ms QT Int : 342 ms P-R-T Axes : 075 051 070 degrees QTc Int : 399 ms Normal sinus rhythm Nonspecific ST and T wave abnormality Abnormal ECG Confirmed by RAVEN TORRES DO ([id number]), offline editor LINCOLN MÁRQUEZ ([id number]) on 09/20/2019 1:57:21 PM Referred By: Confirmed By:RAVEN TORRES DO
== END 2019-09-18 15:45 | disposition home or self-care (01) | DRG 482 ==
LOC: ERS 18:50 → SURG A 21:03 → OBSVTOIN 21:03
PROVIDERS: ADMIT Surgery; ATTEND Surgery
PROC: 0QSC04Z Reposition Left Lower Femur with Internal Fixation Device, Open Approach (ICD-10-PCS; principal; 2019-09-16)
DX: S72.452A Displaced supracondylar fracture without intracondylar extension of lower end of left femur, initial encounter for closed fracture (principal); W19.XXXA Unspecified fall, initial encounter; I10 Essential (primary) hypertension; Z87.891 Personal history of nicotine dependence; W55.32XA Struck by other hoof stock, initial encounter; Y93.K2 Activity, milking an animal
CPT/HCPCS: 36415; 71045; 76000; 80048; 80053; 82550; 83735; 84100; 85025; 85610; 85730; 86850; 86900; 86901; 93005; C1713; C1769; J0360; J0690; J1650; J1885; J2250; J2405; J2704; J3010